=== PATIENT | male | born 1965 | race Caucasian/White ===

== ENCOUNTER 2021-08-28 22:20 | Observation (INO) | payer OTHER ==
[~2021-08-28] VITALS: Ht 185.4 cm; Wt 98.4 kg
--- NOTE | ~2021-08-28 | EMS ---
[place] [address] EMS Patient Care Report Name: RHODA LOZANO Room: [facility] James#: [id number] Admission: 08/28/21 Attend Phys: Discharge: Date of : 69 Report #: [id number] THIS REPORT FOR: //name// Report Transmitted: 08/28/2021 22:46 EMS Care Summary [facility]ident [id number] @ 08/28/2021 21:26 Incident Location [address] [place], [place] [address]way [place] [address] Patient EDMIRANDA LOZANO Male, 55 Years 1965 Patient Address [address] [facility] [address] [place] [address] Patient History Other, Patient Allergies No known allergies, Patient Medications Tylenol, Chief Complaint Right sided back pain Disposition Transported No Lights/[place] Dispatch Reason Back Pain (Non-Traumatic) Transported To [facility] Narrative Med 1 was dispatched to a 55 year old male complaining of kidney stone pain at [employer]. Med 1 responded with a S crew. Med 1 arrived on scene [place] [address] EMS Patient Care Report Name: RHODA LOZANO Room: [facility] Ramirez#: [id number] Admission: 08/28/21 Attend Phys: Discharge: Date of : 69 Report #: [id number] patient walked out of the gas station un assisted to the ambulance and met EMS staff at the door of the ambulance. The patient reported having back pain and thought that he had a kidney stone. The patient walked into the ambulance and sat on the cot. The straps were fastened and rails placed in the upright position. Initial vital signs were manually assessed in the back of the ambulance. The patient stated that he had a similar pain 10 days ago and that it resolved on its own. The patient stated that the pain came back this morning at 4 am. The patient said he took 5 Tylenol at 10am and that it helped with the pain. The patient said the pain retuned 4 hours later and he took another 2 Tylenol. Around 9pm the patient states the Tylenol wore off and he "doubled over" in pain and took 3 more Tylenol. The patient was hooked up to the monitor and vital signs were reassessed and continually monitored. Med 1 went en route to the hospital. The patients back and abdomen were palpated. The patient reported a sharp aching pain in his lower right flank. The pain did not change with palpation. The patient stated that palpation on his lower right quadrant caused his back pain to increase. The patient said he has had some difficulty urination and emptying his bladder today, but denied having any pain or blood in his urine. The patient reported that the pain in his right posterior flank radiated to surrounding areas. The patient denied radiation into the lower extremities. Patient report was given to the hospital and no questions or orders were received. A mask was placed on the patient. Med 1 arrived at the hospital. Patient report was updated with ED staff and patient care was transferred. Signatures were obtained. Med 1 went back in service. Initial Vitals @22:03P: 0,BP: 142/83,SpO2: 100, @21:48P: 90,BP: 148/83,SpO2: 100, @22:13P: 0,BP: 138/85,SpO2: 100, @21:40P: 90,R: 18,BP: 150/84,Pain: 8/10,GCS: 15,Temp: 98F,Glucose: 163,SpO2: 100,Revised Trauma: 12, Assessments @21:37MENTAL:Place Oriented,Time Oriented,Event Oriented,Person Oriented,SKIN:HEENT:LUNG SOUNDS:Right Lower: Other,ABDOMEN:Right Lower: Other,PELVIS//GI:EXTREMITIES:Capillary Refill: Right Upper: < 2 Sec,PULSE:Radial: 2+ Normal,NEURO:@21:50MENTAL:Event Oriented,Time Oriented,Person Oriented,Place Oriented,SKIN:HEENT:LUNG SOUNDS:Right Lower: Other,ABDOMEN:Right Lower: Other,PELVIS//GI:EXTREMITIES:PULSE:NEURO: [place] [address] EMS Patient Care Report Name: RHODA LOZANO Room: [facility] AMEE Ramirez#: [id number] Admission: 08/28/21 Attend Phys: Discharge: Date of : 69 Report #: [id number] Impression Back Pain Procedures @21:37 BLS Assessment Response: Unchanged @22:15 Surgical Mask on Patient Response: Unchanged Timeline 21:23,Call Received 21:26,Dispatched 21:27,En Route 21:36,On Scene 21:37,At Patient 21:37,BLS Assessment,Response: Unchanged 21:40,BP: 150/84 M,PULSE: 90,RR: 18 R,SPO2: 100 Ox,ETCO2: ,B,PAIN: 8,GCS: 15, 21:46,Depart Scene 21:48,BP: 148/83 M,PULSE: 90,RR: R,SPO2: 100 Ox,ETCO2: ,BG: ,PAIN: ,GCS: , 22:03,BP: 142/83 M,PULSE: 0,RR: R,SPO2: 100 Ox,ETCO2: ,BG: ,PAIN: ,GCS: , 22:13,BP: 138/85 M,PULSE: 0,RR: R,SPO2: 100 Ox,ETCO2: ,BG: ,PAIN: ,GCS: , 22:15,Surgical Mask on Patient,Response: Unchanged 22:15,At Destination 22:53,Call Closed Disclaimer v1.1 Copyright 2021 [employer] This EMS Care Summary contains data elements from the applicable legal record (which may be displayed differently). It is designed to provide pertinent information for the following purposes: continuity of care, clinical quality, and state data reporting. The complete legal record is available to ED staff and administrators of the receiving hospital in [employer]'s Patient Tracker. All data is provided "as is."
--- NOTE | ~2021-08-28 | EMS ---
[place] [address] EMS Patient Care Report Name: RHODA LOZANO Room: [facility] James#: [id number] Admission: 08/28/21 Attend Phys: Discharge: Date of : 69 Report #: [id number] THIS REPORT FOR: //name// Report Transmitted: 08/28/2021 23:50 EMS Care Summary [facility]ident [id number] @ 08/28/2021 21:26 Incident Location [address] [place], [place] [address] [address] Patient EDMIRANDA LOZANO Male, 55 Years 1965 Patient Address [address] [facility] [address] [place] [address] Patient History Other, Patient Allergies No known allergies, Patient Medications Tylenol, Chief Complaint Right sided back pain Disposition Transported No Lights/[place] Dispatch Reason Back Pain (Non-Traumatic) Transported To [facility] Narrative Med 1 was dispatched to a 55 year old male complaining of kidney stone pain at [employer]. Med 1 responded with a S crew. Med 1 arrived [place] [address] EMS Patient Care Report Name: RHOAD LOZANO Room: [facility] Ramirez#: [id number] Admission: 08/28/21 Attend Phys: Discharge: Date of : 69 Report #: [id number] patient walked out of the gas station un assisted to the ambulance and met EMS staff at the door of the ambulance. The patient reported having back pain and thought that he had a kidney stone. The patient walked into the ambulance and sat on the cot. The straps were fastened and rails placed in the upright position. Initial vital signs were manually assessed in the back of the ambulance. The patient stated that he had a similar pain 10 days ago and that it resolved on its own. The patient stated that the pain came back this morning at 4 am. The patient said he took 5 Tylenol at 10am and that it helped with the pain. The patient said the pain retuned 4 hours later and he took another 2 Tylenol. Around 9pm the patient states the Tylenol wore off and he "doubled over" in pain and took 3 more Tylenol. The patient was hooked up to the monitor and vital signs were reassessed and continually monitored. Med 1 went en route to the hospital. The patients back and abdomen were palpated. The patient reported a sharp aching pain in his lower right flank. The pain did not change with palpation. The patient stated that palpation on his lower right quadrant caused his back pain to increase. The patient said he has had some difficulty urination and emptying his bladder today, but denied having any pain or blood in his urine. The patient reported that the pain in his right posterior flank radiated to surrounding areas. The patient denied radiation into the lower extremities. Patient report was given to the hospital and no questions or orders were received. A mask was placed on the patient. Med 1 arrived at the hospital. Patient report was updated with ED staff and patient care was transferred. Signatures were obtained. Med 1 went back in service. Initial Vitals @22:03P: 0,BP: 142/83,SpO2: 100, @21:48P: 90,BP: 148/83,SpO2: 100, @22:13P: 0,BP: 138/85,SpO2: 100, @21:40P: 90,R: 18,BP: 150/84,Pain: 8/10,GCS: 15,Temp: 98F,Glucose: 163,SpO2: 100,Revised Trauma: 12, Assessments @21:37MENTAL:Place Oriented,Time Oriented,Event Oriented,Person Oriented,SKIN:HEENT:LUNG SOUNDS:Right Lower: Other,ABDOMEN:Right Lower: Other,PELVIS//GI:EXTREMITIES:Capillary Refill: Right Upper: < 2 Sec,PULSE:Radial: 2+ Normal,NEURO:@21:50MENTAL:Event Oriented,Time Oriented,Person Oriented,Place Oriented,SKIN:HEENT:LUNG SOUNDS:Right Lower: Other,ABDOMEN:Right Lower: Other,PELVIS//GI:EXTREMITIES:PULSE:[place]O: [place] [address] EMS Patient Care Report Name: RHODA LOZANO Room: [facility] AMEE Ramirez#: [id number] Admission: 08/28/21 Attend Phys: Discharge: Date of : 69 Report #: [id number] Impression Back Pain Procedures @21:37 BLS Assessment Response: Unchanged @22:15 Surgical Mask on Patient Response: Unchanged Timeline 21:23,Call Received 21:26,Dispatched 21:27,En Route 21:36,On Scene 21:37,At Patient 21:37,BLS Assessment,Response: Unchanged 21:40,BP: 150/84 M,PULSE: 90,RR: 18 R,SPO2: 100 Ox,ETCO2: ,B,PAIN: 8,GCS: 15, 21:46,Depart Scene 21:48,BP: 148/83 M,PULSE: 90,RR: R,SPO2: 100 Ox,ETCO2: ,BG: ,PAIN: ,GCS: , 22:03,BP: 142/83 M,PULSE: 0,RR: R,SPO2: 100 Ox,ETCO2: ,BG: ,PAIN: ,GCS: , 22:13,BP: 138/85 M,PULSE: 0,RR: R,SPO2: 100 Ox,ETCO2: ,BG: ,PAIN: ,GCS: , 22:15,Surgical Mask on Patient,Response: Unchanged 22:15,At Destination 22:53,Call Closed Disclaimer v1.1 Copyright 2021 [facility] This EMS Care Summary contains data elements from the applicable legal record (which may be displayed differently). It is designed to provide pertinent information for the following purposes: continuity of care, clinical quality, and state data reporting. The complete legal record is available to ED staff and administrators of the receiving hospital in [employer]'s Patient Tracker. All data is provided "as is."
[2021-08-28 22:28] VITALS: BP 107/63
[2021-08-28 23:02] LABS: ABSOLUTE EOSINOPHILS 0.1 thou/uL (0.0-0.7); ABSOLUTE LYMPHOCYTES 1.2 thou/uL (0.8-5.3); ABSOLUTE NEUTROPHILS 11.4 thou/uL (1.6-8.1); BASOPHILS 0.3 %; EOSINOPHILS 0.6 %; HEMATOCRIT 46.7 % (42.0-52.0); LYMPHOCYTES 8.8 %; MCH 29.9 pg (26.0-34.0); MCHC 34.2 g/dL (28.0-37.0); MCV 87.4 fL (80.0-100.0); MONOCYTES 7.4 %; MPV 7.5 fl. (7.2-11.1); NUCLEATED RBCS 0 /100WBC; PLATELET COUNT* 221 thou/uL (150-400); POLYS 82.9 %; RBC 5.34 mil/uL (4.50-6.00); URINE BILIRUBIN NEGATIVE (Negative); URINE BLOOD NEGATIVE (Negative); URINE CLARITY CLEAR; URINE COLOR YELLOW; URINE GLUCOSE-RANDOM NEGATIVE (Negative); URINE KETONES NEGATIVE (Negative); URINE LEUKOCYTES-REFLEX NEGATIVE (Negative); URINE NITRITE-REFLEX NEGATIVE (Negative); URINE PROTEIN NEGATIVE (Negative); URINE SPECIFIC GRAVITY 1.015 (1.005-1.030); URINE UROBILINOGEN 0.2 E.U./dl (0.2-1.0); WBC 13.7 thou/uL (4.0-11.0)
[2021-08-28 23:10] LABS: CALCIUM 8.7 mg/dL (8.5-10.1); CREATININE 1.6 mg/dL (0.6-1.3); POTASSIUM 3.5 mmol/L (3.5-5.1)
[2021-08-28 23:20] LABS: ALBUMIN 3.5 g/dL (3.4-5.0); TOTAL BILIRUBIN 0.9 mg/dL (<0.1-1.0)
[2021-08-29 03:41] VITALS: BP 110/58
[2021-08-29 03:45] VITALS: BP 102/60
[2021-08-29 09:00] VITALS: BP 113/60
[2021-08-29 11:45] LABS: ABSOLUTE EOSINOPHILS 0.1 thou/uL (0.0-0.7); ABSOLUTE LYMPHOCYTES 1.3 thou/uL (0.8-5.3); ABSOLUTE MONOCYTES 0.9 thou/uL (0.0-1.2); ABSOLUTE NEUTROPHILS 7.6 thou/uL (1.6-8.1); BASOPHILS 0.3 %; EOSINOPHILS 1.4 %; HEMATOCRIT 43.9 % (42.0-52.0); HEMOGLOBIN 14.9 gm/dL (14.0-18.0); LYMPHOCYTES 13.1 %; MCH 29.7 pg (26.0-34.0); MCV 87.5 fL (80.0-100.0); MONOCYTES 8.7 %; MPV 7.7 fl. (7.2-11.1); NUCLEATED RBCS 0 /100WBC; PLATELET COUNT* 197 thou/uL (150-400); POLYS 76.5 %; RBC 5.01 mil/uL (4.50-6.00); RDW-CV 13.7 % (10.5-14.5); WBC 9.9 thou/uL (4.0-11.0)
[2021-08-29 12:25] LABS: ALBUMIN 3.1 g/dL (3.4-5.0); CALCIUM 8.2 mg/dL (8.5-10.1); CREATININE 1.6 mg/dL (0.6-1.3); TOTAL BILIRUBIN 0.9 mg/dL (<0.1-1.0); TOTAL PROTEIN 5.4 g/dL (6.4-8.2)
[2021-08-29] MEDS ORDERED: NORCO5 PO (12:49)
[2021-08-29] MEDS ORDERED: FLOMAX0.4 MG PO (12:49)
[2021-08-29 13:32] VITALS: BP 113/60
--- NOTE | 2021-08-29 16:18 | EKG ---
[place] [address] ELECTROCARDIOGRAM REPORT Name: RHODA LOZANO Room: [address]#: [id number] Admission: 08/29/21 Attend Phys: Dwayne Adams Discharge: 08/29/21 Date of : 69 Date of Service: 08/28/212219 Report #: [id number] THIS REPORT FOR: //name// [facility] ED Test Date: 2021-08-28 Test Time: 22:20:54 Pat Name: RHODA LOZANO Department: Room: [address] Gender: M Dementia Program Director: [place] : 1965 Requested By: Dwayne Adams Order Number: [id number] Delia MD: Mike Pacheco Measurements Intervals [place] Rate: 91 P: 71 ME: 133 QRS: 5 QRSD: 98 T: 47 QT: 341 QTc: 420 Interpretive Statements Sinus rhythm Low voltage, precordial leads No previous ECG available for comparison Electronically Signed On 08-29-2021 16:18:38 [employer] by Mike Pacheco [email or web address] <ELECTRONICALLY SIGNED> By: Mike Pacheco MD, [facility] 08/29/21 1618 19 19 Mike Pacheco MD, [facility] /EPI
== END 2021-08-29 13:45 | disposition home or self-care (01) ==
LOC: M.ERS 22:20 → M.TBA-ER 08-29 01:58 → M.ORTHSURG 08-29 01:58
PROVIDERS: Emergency Medicine; Internal Medicine; ADMIT Internal Medicine; ATTEND Internal Medicine
DX: N13.2 Hydronephrosis with renal and ureteral calculous obstruction (principal); Z20.822 Contact with and (suspected) exposure to COVID-19; N17.9 Acute kidney failure, unspecified; Z90.49 Acquired absence of other specified parts of digestive tract; Z79.899 Other long term (current) drug therapy